=== PATIENT | female | born 1940 | race Caucasian/White ===

== ENCOUNTER 2017-03-28 14:44 | Inpatient (IN) | payer OTHER, BC ==
[~2017-03-28] VITALS: Ht 157.5 cm; Wt 49.1 kg
[~2017-03-28 14:44] MED LIST: ARICEPT10 MG PO; ARICEPT5 MG PO; ASPIR 8181 M1 PO; Aspirin PO; BENTYL20 MG PO; Cardizem CD,Cartia X PO; DUONEB 2.5-0.5 M3 ML AEROSOL; FLONASE16 G1 BOTH NARES; Habitrol,Nicoderm CQ TD; LEVAQUIN500 MG PO; LIDODERM 5% P1 PATCH TD; LO-DOSE ASPIRIN81 M1 PO; METOPROLOL SUCC25 MG PO; NAMENDA XR28 MG PO; OMEPRAZOLE40 M1 PO; PANTOPRAZOLE SO40 MG PO; PRAVACHOL20 MG PO; PROTONIX40 MG PO; Protonix PO; SIMPLY SLEEP25 M1 PO; SPIRIVA1 INHALATI IH; TOPROL XL25 MG PO; TRAMADOL HCL50 MG PO; Theragran PO; Thiamine,Vitamin B1 PO; Toprol XL PO; ULTRAM50 MG PO; Ultram PO; XANAX0.25 MG PO; Xanax PO; ZANTAC150 MG PO; ZOFRAN4 MG PO; [UNRECOGNIZED DRUG - OTHER] PO
[2017-03-28 15:31] LABS: HEMATOCRIT 49.4 % (36.0-46.0); MCH 28.6 PG (29.0-34.0); MCHC 31.2 G/DL (30.0-36.0); MCV 91.8 FL (83-99); MEAN PLAT.VOLUME 9.9 uM^3 (9.5-12.4); PLATELET COUNT 243 K/uL (156-360); RBC DIS.WIDTH-CV 15.2 % (11.8-14.6); RBC DIS.WIDTH-SD 51.4 % (39-53); RED BLOOD COUNT 5.38 M/uL (3.80-5.20); WHITE BLOOD COUNT 10.1 K/uL (4.1-10.2)
[2017-03-28 15:39] LABS: CHLORIDE 103 mEq/L (99-109); POTASSIUM 3.8 mEq/L (3.7-5.4); SODIUM 142 mEq/L (136-147)
[2017-03-28 15:42] LABS: GLUCOSE 91 mg/dL (70-99)
[2017-03-28 15:43] LABS: ANION GAP 11 MEQ/L (2-14)
[2017-03-28 15:44] LABS: TOTAL BILIRUBIN 0.3 mg/dL (0.0-1.0)
[2017-03-28 15:45] LABS: ALKALINE PHOSPHATASE 102 IU/L (3-129); GFR ESTIMATE (CALCULATED) > 59 mL/min/
[2017-03-28 15:46] LABS: UREA NITROGEN (BUN) 14 mg/dL (9-23)
[2017-03-28 15:49] LABS: LIPASE 22 U/L (1.0-51.0)
[2017-03-28 15:51] LABS: TROP-I INTERPRETATION NEGATIVE; TROPONIN-I < 0.01 ng/mL (0.0-0.30)
[2017-03-28] MEDS ORDERED: OMEPRAZOLE40 M1 PO (17:46)
[2017-03-28] MEDS ORDERED: CORTEF10 MG PO (17:48)
[2017-03-28] MEDS ORDERED: COLACE100 MG PO (17:49)
[2017-03-28] MEDS ORDERED: AZELASTINE137 MCG/0. BOTH NARES (17:49)
[2017-03-28] MEDS ORDERED: REMERON15 M2 PO (17:50)
[2017-03-28] MEDS ORDERED: NAMZARIC 28 MG1 EACH PO (17:50)
[2017-03-28] MEDS ORDERED: PROAIR HFA8.5 GM IH (17:51)
[2017-03-28 18:25] LABS: ADD MIUA? YES; BILIRUBIN NEGATIVE; BLOOD SMALL; COLOR STRAW ((YELLOW)); GLUCOSE (STRIP) NEGATIVE; KETONES NEGATIVE; LEUKOCYTES MODERATE; NITRITE NEGATIVE; PROTEIN (STRIP) NEGATIVE; SPECIFIC GRAVITY 1.034 (1.000-1.030); UROBILINOGEN 0.2 MG/DL (0.2-1.0)
[2017-03-28 18:28] LABS: BACTERIA NONE SEEN /HPF; EPITHELIAL CELLS RARE /HPF; MUCUS TRACE /LPF; RED BLOOD CELLS 0-5 /HPF (0-5); UCUL ADDED? NO
[2017-03-28 21:22] VITALS: BP 191/84
[2017-03-28 23:48] VITALS: BP 143/67
[2017-03-29 03:13] VITALS: BP 117/57
[2017-03-29 07:44] LABS: HEMATOCRIT 45.7 % (36.0-46.0); MCH 29.6 PG (29.0-34.0); MCHC 31.3 G/DL (30.0-36.0); MCV 94.6 FL (83-99); MEAN PLAT.VOLUME 10.3 uM^3 (9.5-12.4); PLATELET COUNT 206 K/uL (156-360); RBC DIS.WIDTH-CV 15.4 % (11.8-14.6); RBC DIS.WIDTH-SD 53.1 % (39-53); RED BLOOD COUNT 4.83 M/uL (3.80-5.20); WHITE BLOOD COUNT 7.5 K/uL (4.1-10.2)
[2017-03-29 08:09] LABS: ANION GAP 7 MEQ/L (2-14); CHLORIDE 105 MEQ/L (99-109); GFR ESTIMATE (CALCULATED) > 59 mL/min/; GLUCOSE 92 mg/dL (70-99); POTASSIUM 4.1 MEQ/L (3.7-5.4); SAMPLE HEMOLYSIS CHECK 0; SAMPLE ICTERIC CHECK 0; SAMPLE LIPEMIA CHECK 0; SODIUM 143 MEQ/L (136-147); UREA NITROGEN (BUN) 8 mg/dL (9-23)
[2017-03-29 08:43] VITALS: BP 125/60
[2017-03-29 12:15] VITALS: BP 131/61
[2017-03-29 15:35] VITALS: BP 139/66
[2017-03-29 19:07] VITALS: BP 132/65
[2017-03-29 23:07] VITALS: BP 141/72
[2017-03-30 03:43] VITALS: BP 135/796
[2017-03-30 06:49] LABS: EOSINOPHIL (%) 2.4 % (0-5); EOSINOPHIL COUNT 0.2 K/uL (0-0.3); HEMATOCRIT 42.5 % (36.0-46.0); IMMATURE GRANULOCYTE (%) 0.2 % (0.0-0.7); INSTRUMENT ABS NEUTROPHIL CT 4.5 K/uL; LYMPHOCYTE COUNT 1.3 K/uL (1.0-2.8); MCH 29.1 PG (29.0-34.0); MCHC 31.5 G/DL (30.0-36.0); MCV 92.4 FL (83-99); MEAN PLAT.VOLUME 9.9 uM^3 (9.5-12.4); MONOCYTE (%) 9.2 % (3-12); MONOCYTE COUNT 0.6 K/uL (0-0.8); NEUTROPHIL (%) 68.1 % (45-76); NEUTROPHIL COUNT 4.5 K/uL (1.8-6.4); PLATELET COUNT 184 K/uL (156-360); RBC DIS.WIDTH-CV 14.7 % (11.8-14.6); RBC DIS.WIDTH-SD 49.9 % (39-53); WHITE BLOOD COUNT 6.6 K/uL (4.1-10.2)
[2017-03-30 07:07] LABS: ANION GAP 8 MEQ/L (2-14); CHLORIDE 105 MEQ/L (99-109); GFR ESTIMATE (CALCULATED) > 59 mL/min/; GLUCOSE 100 mg/dL (70-99); POTASSIUM 3.9 MEQ/L (3.7-5.4); SAMPLE HEMOLYSIS CHECK 0; SAMPLE ICTERIC CHECK 0; SAMPLE LIPEMIA CHECK 0; SODIUM 144 MEQ/L (136-147); UREA NITROGEN (BUN) 5 mg/dL (9-23)
[2017-03-30 08:40] VITALS: BP 174/94
[2017-03-30 12:53] VITALS: BP 133/88
[2017-03-30 17:43] VITALS: BP 147/69
[2017-03-30 23:32] VITALS: BP 144/68
[2017-03-31 06:43] LABS: EOSINOPHIL (%) 1.2 % (0-5); EOSINOPHIL COUNT 0.1 K/uL (0-0.3); HEMATOCRIT 43.5 % (36.0-46.0); IMMATURE GRANULOCYTE (%) 0.3 % (0.0-0.7); INSTRUMENT ABS NEUTROPHIL CT 5.9 K/uL; LYMPHOCYTE COUNT 1.1 K/uL (1.0-2.8); MCH 29.9 PG (29.0-34.0); MCHC 32.6 G/DL (30.0-36.0); MCV 91.6 FL (83-99); MEAN PLAT.VOLUME 10.3 uM^3 (9.5-12.4); MONOCYTE (%) 9.2 % (3-12); MONOCYTE COUNT 0.7 K/uL (0-0.8); NEUTROPHIL (%) 75.3 % (45-76); NEUTROPHIL COUNT 5.9 K/uL (1.8-6.4); PLATELET COUNT 192 K/uL (156-360); RBC DIS.WIDTH-CV 14.7 % (11.8-14.6); RBC DIS.WIDTH-SD 49.5 % (39-53); RED BLOOD COUNT 4.75 M/uL (3.80-5.20); WHITE BLOOD COUNT 7.8 K/uL (4.1-10.2)
[2017-03-31 07:07] LABS: ANION GAP 10 MEQ/L (2-14); CHLORIDE 104 MEQ/L (99-109); GFR ESTIMATE (CALCULATED) > 59 mL/min/; GLUCOSE 98 mg/dL (70-99); POTASSIUM 3.8 MEQ/L (3.7-5.4); SAMPLE HEMOLYSIS CHECK 0; SAMPLE ICTERIC CHECK 0; SAMPLE LIPEMIA CHECK 0; SODIUM 144 MEQ/L (136-147); UREA NITROGEN (BUN) 4 mg/dL (9-23)
[2017-03-31 08:00] VITALS: BP 132/70
[2017-03-31] MEDS ORDERED: CIPRO500 MG PO (13:31)
[2017-03-31] MEDS ORDERED: FLAGYL500 MG PO (13:31)
== END 2017-03-31 14:07 | disposition home or self-care (01) | DRG 392 ==
LOC: EME 14:44 → EDOF 20:00 → 2EASTP 20:00
PROVIDERS: Emergency Medicine; Family Medicine
DX: K57.32 Diverticulitis of large intestine without perforation or abscess without bleeding (principal); K56.7 Ileus, unspecified; G30.9 Alzheimer's disease, unspecified; F02.80 Dementia in other diseases classified elsewhere, unspecified severity, without behavioral disturbance, psychotic disturbance, mood disturbance, and anxiety; E78.5 Hyperlipidemia, unspecified; F32.9 Major depressive disorder, single episode, unspecified; F41.9 Anxiety disorder, unspecified; I10 Essential (primary) hypertension; M19.90 Unspecified osteoarthritis, unspecified site; I48.0 Paroxysmal atrial fibrillation; J44.9 Chronic obstructive pulmonary disease, unspecified; K21.9 Gastro-esophageal reflux disease without esophagitis; Z68.1 Body mass index [BMI] 19.9 or less, adult; Z87.891 Personal history of nicotine dependence; M54.9 Dorsalgia, unspecified; G89.29 Other chronic pain; K30 Functional dyspepsia; R63.0 Anorexia; K59.00 Constipation, unspecified; R29.6 Repeated falls; K22.70 Barrett's esophagus without dysplasia; R09.02 Hypoxemia
CPT/HCPCS: 74022; 74177; 80048; 80053; 81003; 83605; 83690; 84484; 85025; 85027; 99202; 99281; 99285; J0744; J1170; J2405; J2765; J3010; J7030; J7040; S0030